=== PATIENT | female | born 1940 | race Caucasian/White ===

== ENCOUNTER 2019-05-24 09:32 | Outpatient (CLI) | payer OTHER ==
[~2019-05-24] VITALS: Ht 154.9 cm; Wt 53.1 kg
[2019-05-24] VITALS (10 sets, daily range): BP systolic 121–157; BP diastolic 50–113
[2019-05-24] MEDS ORDERED: FLONASE 0.05%50 MCG NARES (10:24)
[2019-05-24] MEDS ORDERED: ASA81BEC PO (10:24)
[2019-05-24] MEDS ORDERED: ADVAIR 250-501 EACH INH (10:25)
[2019-05-24 10:29] LABS: HEMATOCRIT 40.5 % (37.0-47.0); HEMOGLOBIN 13.5 gm/dL (12.0-15.0); MCH 31.1 pg (26.0-34.0); MCHC 33.3 g/dL (28.0-37.0); MCV 93.4 fL (80.0-100.0); RBC 4.34 mil/uL (4.20-5.00); RDW 12.8 % (10.5-14.5); WBC 4.9 thou/uL (4.0-11.0)
[2019-05-24 10:37] LABS: ANION GAP 8 mmol/L (7-16); BUN 28 mg/dL (7-18); CALCIUM 9.9 mg/dL (8.5-10.1); CHLORIDE 104 mmol/L (98-107); CO2 30 mmol/L (21-32); CREATININE 0.9 mg/dL (0.6-1.0); GLUCOSE 96 mg/dL (74-106); POTASSIUM 4.3 mmol/L (3.5-5.1); SODIUM 142 mmol/L (136-145)
[2019-05-24 10:43] LABS: CHOLESTEROL 246 mg/dL (<200); HDL CHOLESTEROL 90 mg/dL (>40); LDL CHOLESTEROL 136 mg/dL (<100); TC:HDL 2.7 Ratio (Not establshd); TRIGLYCERIDE 103 mg/dL (<150); VLDL 21 mg/dL (<40)
--- NOTE | 2019-05-24 14:09 | NUR ---
PER DR KRUGER OK NOT TO GIVE NORVASC 5MG. PT.'S BP HAS COME DOWN ON ITS OWN. 107/69.
--- NOTE | 2019-05-24 15:03 | NUR ---
CV HOLDING TECH HERE TO PULL SHEATH AND HOLD PRESSURE FOR 10 MINUTES.
--- NOTE | 2019-05-24 15:31 | NUR ---
HEMOSTASIS OBTAINED, SMALL AMOUNT OF BRUISING AROUND PUNCTURE SITE. INSTRUCTIONS GIVEN TO PT TO CALL NURSE IF INCREASING PAIN, OR FEELING OF WARMTH AND WETNESS AROUND DRESSING. SHE VERBALIZED UNDERSTANDING. TO CCU VIA CART ACCOMPANIED BY THIS NURSE.
--- NOTE | 2019-05-24 16:38 | CATHLAB ---
[facility] [place] [address] INVASIVE PROCEDURE REPORT Name: FRANNIE GOEL Room #: 206-P [facility]#: [id number] Admission: 05/24/19 Attend Phys: Neto Lim MD Discharge: Date of : 39 Report #: [id number] THIS REPORT FOR: //name// APPROVED REPORT Study performed: 05/24/2019 09:58:11 Patient Details Patient Status: Out-Patient Room #: The patient is a 78 year-old female Event Personnel Neto Lim Putty And Patch Worker, Yani Vidal RN RN, Kimmy Brown RN RN, Geetha Brooks RTR Scrub, Ru Bernal RTR Scrub, Home White Monitor Procedures Performed Left Heart Cath w/or w/o Coronaries [id number] [facility] ONESIMO Place w/wo Plasty Single LAD 413747 Indication Dyspnea, Unstable angina , Positive stress test, Chest pain Risk Factors Hypercholesterolemia, Hypertension Procedure Narrative The Right Groin^ was infiltrated with 1% Lidocaine subcutaneous anesthesia. A PINNACLE 4FR Sheath #[id number] sheath was inserted into the RFA^. Coronary angiography was performed using coronary diagnostic catheters. The right coronary system was accessed and visualized with a JR4 catheter. The left coronary system was accessed and visualized with a JL4 catheter. The left ventricle was accessed and visualized with a PIGTAIL catheter. Left ventricular/Aortic Valve gradient assessed via catheter pullback. The patient tolerated the procedure well and there were no complications associated with the procedure. Intraoperative Conscious Sedation Sedation start time: 12.23 Case end Time: 1.15 Fentanyl 25 mcg Versed 0.5 mg Fluoro Time: 10.19 minutes Dose: DAP 5538 cGycm2 819 mGy [facility] [address] [place] [address] INVASIVE PROCEDURE REPORT Name: FRANNIE GOEL Room #: 206-P [facility]#: [id number] Admission: 05/24/19 Attend Phys: Neto Lim MD Discharge: Date of : 39 Report #: [id number] Contrast Type and Amount: Omnipaque 170 ml Coronary Angiography The patient's coronary anatomy is left dominant. Diagnostic Cath Left Main This is a large caliber vessel, patent with no flow-limiting lesions. LAD This is a moderate size caliber vessel, traversing the anterior wall and wrapping around the apex. There is a severe occlusion in the proximal segment, 80-85%. Diagonal 1 This is a moderate size caliber vessel, with a moderate stenosis at the ostium, 60%. Circumflex This is a dominant vessel, with mild disease proximally, 20%. OM1 There is a moderate size caliber vessel, patent with no flow-limiting lesions. L PDA There is a moderate size caliber vessel, patent with no flow-limiting lesions. Right Coronary This is a small, nondominant vessel, patent with no flow-limiting lesions. Ramus There is a moderate size caliber vessel, patent with no flow-limiting lesions. Left Ventriculography Left Ventriculography was not performed. Ejection Fraction was >55% based off patient's Nuclear Cardiac Stress Test. An LVEDP was measured and there is no gradient across the outflow tract. Hemodynamics The aortic pressure is 178/91 mmHg with a mean of 52 mmHg. The left ventricular pressure is 176/13 mmHg with a mean of mmHg. The left ventricular end diastolic pressure is 26 mmHg. There was no gradient across the aortic valve upon pullback. Pullback from the left ventricle to the aorta revealed no gradient across the aortic valve. PCI Technique Lesion Percutaneous coronary intervention was performed on the proximal left anterior descending artery segment. The lesion stenosis prior to intervention was 85% with SAMM 3 flow. A VISTA 6FR JL4 #[id number] Guide Catheter was used to engage the ostium. A Luge Wire .014 x 182CM #[id number] Interventional Guidewire was used to cross the lesion. [address] [place] [address] INVASIVE PROCEDURE REPORT Name: MANASAFRANNIE JEAN Room #: 206-P [facility]..#: [id number] Admission: 05/24/19 Attend Phys: Neto Lim MD Discharge: Date of : 39 Report #: [id number] BALLOON DILATION A Balloon catheter Euphora RX 2.5 x 12 #[id number] was inserted and inflated up to 8.00atm for 15seconds. Additional Inflation: 6.00atm for 18seconds. Additional Inflation: 10.00atm for 11seconds. STENT DEPLOYMENT A drug-eluting stent XIENCE ASHWINI RX 2.75 X 28 #[id number] was inserted and inflated up to 12.00atm for 17seconds. POST STENT DEPLOYMENT BALLOON DILATION A Balloon catheter TREK NC RX 3.0 X 15 #[id number] was inserted and inflated up to 14.00atm for 12seconds. Additional Inflation: 14atm for 14seconds. Final angiography reveals 5 % stenosis with SAMM 3 flow. Conclusion 1. Successful insertion of a drug-eluting stent into the proximal LAD stenosis. 2. A left dominant system, with mild disease. 3. Normal LV systolic function. 4. Recommend dual antiplatelet therapy and aggressive risk factor management. <ELECTRONICALLY SIGNED> By: Neto Lim MD 05/24/19 1638 1638 1638 Neto Lim MD /INF
[2019-05-24] MEDS ORDERED: FISH OIL 1,001000 M2 PO (16:47)
[2019-05-24] MEDS ORDERED: ADRENOID CAPSU1 EACH PO (16:48)
--- NOTE | 2019-05-24 18:36 | NUR ---
PT. ARRIVED AT FLOOR AROUND 1600; PT. A0X4; ON BED REST UNTIL 2100; EDUCATED ABOUT IT; ST. UNDERSTANDING; NO C/O PAIN; NO HEMATOMA OVER R. GROIN AREA WHEN ARRIVED; MONITORING; EDUCATED ABOUT CALLING IF INCREASE PAIN OVER R. GROIN AREA; ST. UNDERSTANDING; THROUGH THE AFTERNOON NO HEMATOMA NOTICED; SINUS RYTHM ON THE MONITOR; ASSESSMENT CHARGED; FOLLOWING POC; WILL PASS ON REPORT;
[2019-05-25 04:05] VITALS: BP 124/50
--- NOTE | 2019-05-25 04:10 | NUR ---
ASSUMED CARE AT 1900. PT ALERT AND ORIENTED. WAS ON BED REST S/P CARDIAC CATH. PT OFF BEDREST 1T 1899. VSS. GROIN SITE CLEAN DRY AND INTACT WITH BRUISES. NO HEMATOMA NOTED. PT DENIES ANY PAIN/CHEST PAIN. PT CURRENTLY STABLE. WILL CONTINUE WITH FOLLOWING POC.
[2019-05-25 05:19] LABS: HEMATOCRIT 33.6 % (37.0-47.0); MCH 31.7 pg (26.0-34.0); MCHC 33.9 g/dL (28.0-37.0); MCV 93.5 fL (80.0-100.0); RBC 3.59 mil/uL (4.20-5.00); RDW 13.1 % (10.5-14.5); WBC 8.3 thou/uL (4.0-11.0)
[2019-05-25 05:28] LABS: HEMOGLOBIN 11.4 gm/dL (12.0-15.0)
[2019-05-25 05:29] LABS: CALCIUM 8.5 mg/dL (8.5-10.1); POTASSIUM 3.8 mmol/L (3.5-5.1); TOTAL BILIRUBIN 0.3 mg/dL (<0.1-1.0)
[2019-05-25] MEDS ORDERED: METOPROLOL SUCC25 M1 PO (07:40)
[2019-05-25] MEDS ORDERED: LIPITOR40 MG PO (07:40)
[2019-05-25] MEDS ORDERED: EFFIENT10 MG PO (07:40)
[2019-05-25 08:27] VITALS: BP 144/77
--- NOTE | 2019-05-25 08:38 | EKG ---
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: Fly GRAVES : 1940 Requested By: Neto Lim Order Number: [id number] MD: Tyson Keenan Measurements Intervals [place] Rate: 90 P: 35 MS: 164 QRS: 62 QRSD: 94 T: 41 QT: 354 QTc: 433 Interpretive Statements Sinus rhythm RSR' in V1 or V2, probably normal variant No previous ECG available for comparison Electronically Signed On 05-25-2019 8:37:51 TREASURY ASSISTANT by Tyson Keenan [email or web address] <ELECTRONICALLY SIGNED> By: Tyson Keenan MD, [facility] 05/25/19 0837 1648 47 Tyson Keenan MD, FACC /EPI
--- NOTE | 2019-05-25 08:56 | EKG ---
[place] [address] [address] [facility] [place] [address] ELECTROCARDIOGRAM REPORT Name: FRANNIE GOEL Room #: 206-[facility]#: [id number] Admission: 05/24/19 Attend Phys: Neto Lim MD Discharge: Date of : 39 Report #: [id number] THIS REPORT FOR: //name// [facility] Test Date: 2019-05-25 Test Time: 07:06:53 Pat Name: FRANNIE GOEL Department: Room: 206 Gender: F Whipper Beater: Cindi BRAGG : 1940 Requested By: Neto Lim Order Number: [id number] MD: Tyson Keenan Measurements Intervals [place] Rate: 78 P: 79 ND: 155 QRS: 74 QRSD: 92 T: 60 QT: 384 QTc: 438 Interpretive Statements Sinus rhythm Atrial premature complex RSR' in V1 or V2, probably normal variant No previous ECG available for comparison Electronically Signed On 05-25-2019 8:55:49 HANSARD REPORTER by Tyson Keenan [email or web address] <ELECTRONICALLY SIGNED> By: Tyson Keenan MD, [facility] 05/25/19 0855 5 5 Tyson Keenan MD, [facility] /EPI
[2019-05-25 11:25] VITALS: BP 143/63
[2019-05-25 12:42] VITALS: BP 144/77
--- NOTE | 2019-05-25 12:46 | NUR ---
RECEIVED PT'S CARE AROUND 0710; PT. AOX4; NO C/O PAIN; ST. NOT ABLE TO REST; DURING SHIFT CHANGE R. GROIN ASSESSED; LARGE BRUISING NOTICED; NO HEMATOMA PRESENT; DURING AM CARDIO ROUNDING; ULTRA SOUND ORDER; AM MEDICATIONS GIVEN; RESULTS BACK; PHYSICIAN NOTIFIED; D/C ORDERS ON PLACED; PT. NOTIFIED; WORKING ON D/C PAPERS; SR ON HEART MONITOR; ASSESSMENT CHARGED; FOLLOWED POC; NO HEMATOMA NOTED AT D/C;
--- NOTE | 2019-05-27 08:53 | D ---
[facility] [place] [address] DISCHARGE SUMMARY Name: FRANNIE GOEL [facility] [id number] Admission: 05/24/19 Attend Phys: Neto Lim MD Discharge: 05/25/19 Date of : 39 Report #: [id number] THIS REPORT FOR: //name// CC: Keith Lim DATE OF SERVICE: 05/25/2019 FINAL DIAGNOSES: 1. Unstable angina, status post percutaneous coronary intervention. 2. Supraventricular tachycardia. 3. Hypertension. 4. Hypercholesterolemia. HOSPITAL COURSE: Please see the original H and P for full details. The patient presented with recent onset of dyspnea and chest discomfort with exertion. She did undergo a nuclear stress test, revealing anterior ischemia. She underwent an elective cardiac catheterization, found to have a severe occlusion in the proximal LAD. Angioplasty was performed with placement of a drug-eluting stent. She has remained stable overnight. She did have runs of nonsustained SVT, probable atrial tachycardia. She remains clinically stable, denies any chest pains or shortness of breath. She does have a hematoma on the right groin, will undergo an ultrasound. FINAL DISPOSITION: Aspirin 81 mg daily, Effient 10 mg daily, Lipitor 40 mg daily, Toprol-XL daily. She is given instructions for followup in a few weeks. <ELECTRONICALLY SIGNED> By: Neto Lim MD 05/27/19 0853 0759 0835 MD francisco Sparrow
== END 2019-05-25 13:27 | disposition home or self-care (01) ==
LOC: CATH 09:32 → 2N 15:47 → CATH 17:54 → ENTRNSPT 05-25 13:12 → EDTRNSPTSTS 05-25 13:15 → CATH 05-25 13:27
PROVIDERS: Internal Medicine Cardiovascular Disease
DX: R07.9 Chest pain, unspecified (principal); I25.110 Atherosclerotic heart disease of native coronary artery with unstable angina pectoris; R94.39 Abnormal result of other cardiovascular function study; R06.00 Dyspnea, unspecified; R10.30 Lower abdominal pain, unspecified; I10 Essential (primary) hypertension; E78.00 Pure hypercholesterolemia, unspecified; E78.5 Hyperlipidemia, unspecified; Z98.890 Other specified postprocedural states; Z79.899 Other long term (current) drug therapy; Z85.3 Personal history of malignant neoplasm of breast; Z86.73 Personal history of transient ischemic attack (TIA), and cerebral infarction without residual deficits; Z88.8 Allergy status to other drugs, medicaments and biological substances; Z79.82 Long term (current) use of aspirin
CPT/HCPCS: 10081

== ENCOUNTER → 2019-12-14 | Outpatient (CLI) | payer OTHER ==
[~2019-12-14] MED LIST: ADRENOID CAPSU1 EACH PO; ADVAIR 250-501 EACH INH; ASA81BEC PO; EFFIENT10 MG PO; FISH OIL 1,001000 M2 PO; FLONASE 0.05%50 MCG NARES; LIPITOR40 MG PO; METOPROLOL SUCC25 M1 PO
== END ==
LOC: SJCVC 13:49
PROVIDERS: ATTEND Internal Medicine Cardiovascular Disease
DX: I45.10 Unspecified right bundle-branch block (principal); I25.10 Atherosclerotic heart disease of native coronary artery without angina pectoris; I47.1 Supraventricular tachycardia; E78.00 Pure hypercholesterolemia, unspecified; I10 Essential (primary) hypertension; Z79.82 Long term (current) use of aspirin; Z79.899 Other long term (current) drug therapy; E78.5 Hyperlipidemia, unspecified

== ENCOUNTER → 2019-12-20 | Outpatient (CLI) | payer OTHER | LOC: SJCVC 10:06 | PROVIDERS: ATTEND Internal Medicine Cardiovascular Disease | DX: I25.10 Atherosclerotic heart disease of native coronary artery without angina pectoris (principal); E78.5 Hyperlipidemia, unspecified; E55.9 Vitamin D deficiency, unspecified; J45.909 Unspecified asthma, uncomplicated ==

== ENCOUNTER → 2020-01-04 | Outpatient (CLI) | payer OTHER | LOC: SJCVCIMAG 08:59 | PROVIDERS: ATTEND Internal Medicine Cardiovascular Disease | DX: I25.10 Atherosclerotic heart disease of native coronary artery without angina pectoris (principal); I45.10 Unspecified right bundle-branch block; I49.3 Ventricular premature depolarization; E78.00 Pure hypercholesterolemia, unspecified; I10 Essential (primary) hypertension; I47.1 Supraventricular tachycardia; Z79.899 Other long term (current) drug therapy ==

== ENCOUNTER → 2020-08-22 | Outpatient (CLI) | payer OTHER | LOC: SJCVC 10:10 | PROVIDERS: ATTEND Internal Medicine Cardiovascular Disease | DX: I25.10 Atherosclerotic heart disease of native coronary artery without angina pectoris (principal); E78.00 Pure hypercholesterolemia, unspecified; I10 Essential (primary) hypertension; I47.1 Supraventricular tachycardia; E78.5 Hyperlipidemia, unspecified; E55.9 Vitamin D deficiency, unspecified; Z85.3 Personal history of malignant neoplasm of breast; Z86.73 Personal history of transient ischemic attack (TIA), and cerebral infarction without residual deficits; Z88.5 Allergy status to narcotic agent; Z79.02 Long term (current) use of antithrombotics/antiplatelets; Z79.899 Other long term (current) drug therapy ==

== ENCOUNTER → 2020-10-02 | Outpatient (CLI) | payer OTHER ==
[~2020-10-02] VITALS: Ht 154.9 cm; Wt 56.6 kg
[~2020-10-02] MED LIST changes: +CENTRUM SILVER1 EAC6 PO; +LEXAPRO 10 MG T10 M1 PO; +TOPROL XL50 MG PO
[2020-10-02 09:49] VITALS: BP 159/93
--- NOTE | 2020-10-02 10:28 | NUR ---
Pain Clinic Assessment: 1. History of Osteoarthritis: Not Applicable History of Rheumatoid Arthritis: Not Applicable 2. Height: 5 ft. 1 in. 154.9 cm. Weight: 124.8 lb. oz. 56.609 kg. Patient's BMI: 23.6 3. Vital Signs: BP: 159/93 Pulse: 79 Resp: 16 Temp: 02 Sat: 100 ECG Mon: 4. Pain Intensity: 5 5. Fall Risk: Dizziness: N Needs help standing or walking: N Fallen in the last 3 months: Y Fall risk comments: 6. Patient on Blood Thinner: None 7. History of Hypertension: Y 8. Opioid Therapy greater than 6 weeks: N Opiate Contract Signed: 9. Risk Assessment Tool Provided: LOW 10. Functional Assessment Tool: 11. Recreational Drug Use: Never Drug Type: Tobacco Use: Never Smoker Tobacco Type: Amount or Packs/day: How Many Years: Alcohol Use: Yes Frequency: Weekly Quant: 1-2
== END ==
LOC: PAIN 09:08
PROVIDERS: ATTEND Anesthesiology Pain Medicine
DX: M47.27 Other spondylosis with radiculopathy, lumbosacral region (principal); G89.4 Chronic pain syndrome; M25.562 Pain in left knee; Z79.891 Long term (current) use of opiate analgesic; Z79.899 Other long term (current) drug therapy

== ENCOUNTER → 2020-10-31 | Outpatient (CLI) | payer OTHER ==
[~2020-10-31] VITALS: Ht 154.9 cm; Wt 56.2 kg
[2020-10-31 10:26] VITALS: BP 146/77
--- NOTE | 2020-10-31 10:54 | NUR ---
Pain Clinic Assessment: 1. History of Osteoarthritis: Not Applicable History of Rheumatoid Arthritis: Not Applicable 2. Height: 5 ft. 1 in. 154.9 cm. Weight: 123.8 lb. oz. 56.155 kg. Patient's BMI: 23.4 3. Vital Signs: BP: 146/77 Pulse: 82 Resp: 14 Temp: 02 Sat: 97 ECG Mon: 4. Pain Intensity: 5 5. Fall Risk: Dizziness: Y Needs help standing or walking: N Fallen in the last 3 months: Y Fall risk comments: 6. Patient on Blood Thinner: None 7. History of Hypertension: Y 8. Opioid Therapy greater than 6 weeks: N Opiate Contract Signed: 9. Risk Assessment Tool Provided: LOW 10. Functional Assessment Tool: 11. Recreational Drug Use: Never Drug Type: Tobacco Use: Never Smoker Tobacco Type: Amount or Packs/day: How Many Years: Alcohol Use: Yes Frequency: Quant:
--- NOTE | 2020-11-07 08:22 | HPC ---
[facility] [place] [place] [address] PAIN MANAGEMENT CONSULTATION Name: FRANNIE GOEL Room #: REG [facility].#: [id number] Admission: 10/31/20 Attend Phys: Moises Monreal DO Discharge: Date of : 39 Report #: [id number] THIS REPORT FOR: cc: Vito Leal Steven F. DO Johnson, James E. DO ~ DOC #: [id number] cc: MATTI Lea DO DATE OF SERVICE: 10/31/2020 REFERRING PHYSICIAN: Myrna Cleaning, nurse practitioner. CHIEF COMPLAINT: Left sacroiliac joint dysfunction, chronic low back pain. HISTORY OF PRESENT ILLNESS: As you know, the patient is a very pleasant 80-year-old female who returns today in followup visit having seeing good benefit with sacroiliac joint manipulation and myofascial release techniques provided through [employer]. The patient is doing very well, reporting pain score no greater than 5/10. She feels that the combination of treatment along with adjustments in her daily activity have improved pain. She returns today in followup visit to discuss options for treatment. The patient reports the pain begins in the left upper buttock area, radiates down the left leg, but no farther than the mid thigh. She states her pain is steady and aching and tender in sensation, exacerbated with standing for any length of time, sitting for any length of time, improves with lying down, heat, cold compresses and to a lesser degree myofascial release and pelvic manipulation of the SI joint. She returns today in followup visit with pain level no greater than 5/10. ALLERGIES: CODEINE AND SHELLFISH. CURRENT MEDICATIONS: Escitalopram 10 mg once a day, multivitamin one tab per day, metoprolol 50 mg once a day, atorvastatin 40 mg once a day, vitamin B complex 1 tab per day, aspirin 81 mg per day. SOCIAL HISTORY: The patient denies tobacco use. Denies IV or illicit drug use. Admits occasional alcohol beverage. 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 IMAGING: No new imaging is available. PHYSICAL EXAMINATION: PQRS: The patient has known arthritic changes of lumbar spine. No rheumatoid arthritis. She is placing current pain score at 5/10. She is not a fall risk, but did have a fall within the last 3 months. She has changed the location of some objects that she tripped over on the floor. This has resolved the issues. [address] [address] PAIN MANAGEMENT CONSULTATION Name: FRANNIE GOEL [id number] Admission: 10/31/20 Attend Phys: Moises Monreal DO Discharge: Date of : 39 Report #: [id number] She is not on blood thinners, but is treated for hypertension. She is on no opioids, has a low opiate addiction potential based on assessment tool. Pain impact is 52/70, moderate to severe interference of daily activities secondary to pain. VITAL SIGNS: Blood pressure 146/77, pulse 82, respiratory rate 14 and unlabored. The patient 97% on room air. Height 5 foot 1 inch tall, weight 123.8 pounds, BMI calculated 23.4. GENERAL: Well-developed, well-nourished, well-hydrated 80-year-old female appearing stated age, pain is rated around 5/10. HEENT: Normocephalic, atraumatic. Pupils equal, round and responsive. EXTREMITIES: Show no clubbing, no cyanosis. No appreciable edema. MUSCULOSKELETAL: Seated straight leg raising negative. Supine straight leg raising negative. Thigh thrust maneuver on the left positive, negative right. Provocation testing of the SI joints such as modified Gaenslen's positive on the left. Dory's test positive on the left. Jez test positive on the left. ASSESSMENT: 1. Left sacroiliac joint dysfunction. 2. Chronic axial back pain. 3. Chronic intractable pain. PLAN: 1. The patient returns today in followup visit to discuss options for treatment. We discussed with the patient continuation of physical therapy and manipulation of the SI joint for which she is seeing good benefit. We discussed medication management with suggestions of treatment. Being provided to start a nonsteroidal anti-inflammatory and possible low dose pain controller such as tramadol. We discussed intraarticular SI joint injections for which the patient was referred to our clinic. We also discussed SI joint fusion as an option. The patient at this time wishes to continue working with mild core and doing daily home stretching. We agree with the patient to remain as conservative as possible as long as possible. 2. We will see the patient back in followup visit on an as needed basis for possible interventional therapy. We are pleased to see the patient is doing well with current conservative treatment and hope her symptoms continue to improve. Moises Monreal DO JEJ/SWA <ELECTRONICALLY SIGNED> By: Moises Monreal DO 11/07/20 0822 1524 2330 Moises Monreal, DO /nt
== END ==
LOC: PAIN 09:57
PROVIDERS: ATTEND Anesthesiology Pain Medicine
DX: M53.3 Sacrococcygeal disorders, not elsewhere classified (principal); M54.5 Low back pain; G89.4 Chronic pain syndrome; Z79.899 Other long term (current) drug therapy; Z79.891 Long term (current) use of opiate analgesic; Z88.5 Allergy status to narcotic agent

== ENCOUNTER → 2021-02-22 | Outpatient (CLI) | payer OTHER | LOC: SJCVCIMAG 12:33 | PROVIDERS: ATTEND Internal Medicine Cardiovascular Disease | DX: I45.10 Unspecified right bundle-branch block (principal); I25.10 Atherosclerotic heart disease of native coronary artery without angina pectoris; E78.00 Pure hypercholesterolemia, unspecified; I10 Essential (primary) hypertension; I47.1 Supraventricular tachycardia; Z88.2 Allergy status to sulfonamides; J45.909 Unspecified asthma, uncomplicated; Z91.013 Allergy to seafood; Z79.82 Long term (current) use of aspirin; Z79.899 Other long term (current) drug therapy; Z72.89 Other problems related to lifestyle ==